=== PATIENT | male | born 1985 | race Caucasian/White ===

== ENCOUNTER 2016-08-21 14:22 | Observation (INO) | payer MEDICARE, MEDICAID, OTHER ==
[~2016-08-21] VITALS: Ht 170.2 cm; Wt 75.0 kg
[~2016-08-21 14:22] MED LIST: BP MEDICATION PO; CARBXR200 PO
[2016-08-21 14:40] VITALS: BP 127/81; PULSE 95; RESP 16; O2SAT 97
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
[2016-08-21 14:55] VITALS: BP 127/81; PULSE 92; RESP 16; O2SAT 96
[2016-08-21 15:33] LABS: ALT (GPT) 23 U/L (12-78); ANION GAP 9 MEQ/L (5-15); AST (GOT) 12 U/L (15-37); BICARBONATE 27.9 MEQ/L (21.0-32.0); BLOOD UREA NITROGEN 9 MG/DL (7-18); CHLORIDE 103 MEQ/L (98-107); GLOMERULAR FILTRATION RATE 94 ML/MIN (>89); POTASSIUM 4.2 MEQ/L (3.5-5.1); SODIUM (NA) 140 MEQ/L (136-145)
[2016-08-21 15:36] LABS: ALKALINE PHOSPHATASE 126 U/L (45-117); TOTAL BILIRUBIN ADULT 0.3 MG/DL (0.2-1.0)
[2016-08-21 16:47] LABS: AUTOMATED NEUTROPHIL # 4.8 TH/MM3 (1.8-7.7); BASOPHIL % 0.6 % (0.0-2.0); EOSINOPHIL # 0.2 TH/MM3 (0-0.4); EOSINOPHIL % 2.7 % (0.0-4.0); HEMO FLAGS DIFF FINAL; LYMPH % 18.3 % (9.0-44.0); LYMPHOCYTE # 1.2 TH/MM3 (1.0-4.8); MEAN CELL VOLUME 87.2 FL (80.0-100.0); MEAN CORPUSCULAR HEMOGLOBIN 29.6 PG (27.0-34.0); MEAN CORPUSCULAR HGB CONC 33.9 % (32.0-36.0); MONO % 7.2 % (0.0-8.0); NEUT % 71.2 % (16.0-70.0); PLATELET COUNT 235 TH/MM3 (150-450); RED BLOOD COUNT 5.05 MIL/MM3 (4.50-5.90); RED CELL DISTRIBUTION WIDTH 12.8 % (11.6-17.2); WHITE BLOOD COUNT 6.7 TH/MM3 (4.0-11.0)
[2016-08-21] MEDS ORDERED: BACT2OIN TOPICAL (17:03)
[2016-08-21] MEDS ORDERED: BACT800T5 PO (17:03)
[2016-08-21 17:50] VITALS: BP 126/84; PULSE 89; RESP 18; O2SAT 96
--- NOTE | 2016-08-21 23:39 | PD ---
Data Data Last Documented VS Vital Signs Date Time Temp Pulse Resp B/P Pulse Ox O2 Delivery O2 Flow Rate FiO2 08/21/16 17:50 89 18 126/84 96 Room Air Orders Complete Blood Count With Diff (08/21/16 14:47) Comprehensive Metabolic Panel (08/21/16 14:47) Psych Screen (08/21/16 14:47) Drug Screen, Random Urine (08/21/16 14:47) Alcohol (Ethanol) (08/21/16 14:47) Labs Laboratory Tests Test 08/21/16 15:00 White Blood Count 6.7 TH/MM3 Red Blood Count 5.05 MIL/MM3 Hemoglobin 14.9 GM/DL Hematocrit 44.0 % Mean Corpuscular Volume 87.2 FL Mean Corpuscular Hemoglobin 29.6 PG Mean Corpuscular Hemoglobin 33.9 % Concent Red Cell Distribution Width 12.8 % Platelet Count 235 TH/MM3 Mean Platelet Volume 9.4 FL Neutrophils (%) (Auto) 71.2 % Lymphocytes (%) (Auto) 18.3 % Monocytes (%) (Auto) 7.2 % Eosinophils (%) (Auto) 2.7 % Basophils (%) (Auto) 0.6 % Neutrophils # (Auto) 4.8 TH/MM3 Lymphocytes # (Auto) 1.2 TH/MM3 Monocytes # (Auto) 0.5 TH/MM3 Eosinophils # (Auto) 0.2 TH/MM3 Basophils # (Auto) 0.0 TH/MM3 CBC Comment DIFF FINAL Differential Comment Sodium Level 140 MEQ/L Potassium Level 4.2 MEQ/L Chloride Level 103 MEQ/L Carbon Dioxide Level 27.9 MEQ/L Anion Gap 9 MEQ/L Blood Urea Nitrogen 9 MG/DL Creatinine 0.93 MG/DL Estimat Glomerular Filtration 94 ML/MIN Rate Random Glucose 104 MG/DL Calcium Level 9.2 MG/DL Total Bilirubin 0.3 MG/DL Aspartate Amino Transf 12 U/L (AST/SGOT) Alanine Aminotransferase 23 U/L (ALT/SGPT) Alkaline Phosphatase 126 U/L Total Protein 7.7 GM/DL Albumin 4.6 GM/DL Ethyl Alcohol Level LESS THAN 3 MG/DL [facility] Supervised Visit with NATALIIA: Yes Narrative Course Patient seen and examined by me, was approached by Earnestine mckinney for psychiatry for possible left Hayward act. Patient is 31-year-old male with a history of dense autism is here because his father was involuntarily committed and now he has no one to care for him. Patient was Hayward acted because he is gravely disabled and cannot care for himself. No my exam speaks only into words, he is calm and collected and has not shown any aggressive behavior. We have approached case management and ultimately patient will need placement into a care facility or foster family. I'm willing to lift his Hayward act if we can find placement but because the patient has no family that can consent for him he will become a DCF consult. Earnestine is going to call [facility]. [facility] has not yet made recommendations. We'll keep him on Hayward act until a more appropriate disposition can be found. The patient does remain gravely disabled given his mental status he needs someone to look after him 24-hour stay 7 days per week. Diagnosis Primary Impression: Autism disorder Additional Impression: Impetigo Additional Instruction: Take medications as prescribed. Apply ointment as prescribed. Follow-up with your Primary Care Physician. Return to the ED for any acute worsening of symptoms. Scripts Mupirocin Topical (Bactroban Topical)2% Oint1 Appl TOPICAL BID 10 Days Ref 0 Prov:Jerome Salazar MD 08/21/16 Sulfamethoxazole-Trimethoprim (Bactrim DS)800-160 Mg Tab1 Tab PO BID 10 Days Ref 0 Prov:Jeroem Salazar MD 08/21/16 Mesfin Chaudhary MD Aug 21, 2016 23:39
[2016-08-22 04:00] VITALS: BP 133/90; PULSE 72; RESP 16; O2SAT 100
[2016-08-22 08:38] VITALS: BP 116/81; PULSE 80; RESP 16; O2SAT 100
[2016-08-22 12:40] VITALS: BP 131/79; PULSE 82; RESP 16; O2SAT 97
--- NOTE | 2016-08-22 14:53 | PD ---
Data Data Last Documented VS Vital Signs Date Time Temp Pulse Resp B/P Pulse Ox O2 Delivery O2 Flow Rate FiO2 08/22/16 12:40 82 16 131/79 97 Room Air Orders Complete Blood Count With Diff (08/21/16 14:47) Comprehensive Metabolic Panel (08/21/16 14:47) Psych Screen (08/21/16 14:47) Drug Screen, Random Urine (08/21/16 14:47) Alcohol (Ethanol) (08/21/16 14:47) Diet Regular Basic (08/22/16 Breakfast) Diet Regular Basic (08/22/16 Lunch) Labs Laboratory Tests Test 08/21/16 15:00 White Blood Count 6.7 TH/MM3 Red Blood Count 5.05 MIL/MM3 Hemoglobin 14.9 GM/DL Hematocrit 44.0 % Mean Corpuscular Volume 87.2 FL Mean Corpuscular Hemoglobin 29.6 PG Mean Corpuscular Hemoglobin 33.9 % Concent Red Cell Distribution Width 12.8 % Platelet Count 235 TH/MM3 Mean Platelet Volume 9.4 FL Neutrophils (%) (Auto) 71.2 % Lymphocytes (%) (Auto) 18.3 % Monocytes (%) (Auto) 7.2 % Eosinophils (%) (Auto) 2.7 % Basophils (%) (Auto) 0.6 % Neutrophils # (Auto) 4.8 TH/MM3 Lymphocytes # (Auto) 1.2 TH/MM3 Monocytes # (Auto) 0.5 TH/MM3 Eosinophils # (Auto) 0.2 TH/MM3 Basophils # (Auto) 0.0 TH/MM3 CBC Comment DIFF FINAL Differential Comment Sodium Level 140 MEQ/L Potassium Level 4.2 MEQ/L Chloride Level 103 MEQ/L Carbon Dioxide Level 27.9 MEQ/L Anion Gap 9 MEQ/L Blood Urea Nitrogen 9 MG/DL Creatinine 0.93 MG/DL Estimat Glomerular Filtration 94 ML/MIN Rate Random Glucose 104 MG/DL Calcium Level 9.2 MG/DL Total Bilirubin 0.3 MG/DL Aspartate Amino Transf 12 U/L (AST/SGOT) Alanine Aminotransferase 23 U/L (ALT/SGPT) Alkaline Phosphatase 126 U/L Total Protein 7.7 GM/DL Albumin 4.6 GM/DL Ethyl Alcohol Level LESS THAN 3 MG/DL MDM Supervised Visit with NATALIIA: No Narrative Course Patient signed out to me awaiting DCF placement. Inserted 31-year-old male with history of autism here as a Hayward act as he is unable to care for himself, father is unable to care for him as patient's father was involuntarily committed and there is now no person able to take care of patient. Patient is gravely disabled, near nonverbal. Patient has been cooperative throughout ED stay without any aggressive behavior. DCF has been contacted for placement versus foster family as he needs 24 7 care. DCF culled fruit packer came to the ED today, but do not anticipate being able to place patient. Patient has are to be in the emergency department for 24 hours at this time and will therefore be admitted for ultimate DCF placement. Diagnosis Primary Impression: Autism disorder Additional Impression: Impetigo Admitting Information Admitting Physician Requests: Observation Additional Instruction: Take medications as prescribed. Apply ointment as prescribed. Follow-up with your Primary Care Physician. Return to the ED for any acute worsening of symptoms. Scripts Mupirocin Topical (Bactroban Topical)2% Oint1 Appl TOPICAL BID 10 Days Ref 0 Prov:Jerome Salazar MD 08/21/16 Sulfamethoxazole-Trimethoprim (Bactrim DS)800-160 Mg Tab1 Tab PO BID 10 Days Ref 0 Prov:Jerome Salazar MD 08/21/16 Asmita Mendoza MD Aug 22, 2016 14:53
[2016-08-22] MEDS ORDERED: SODIUM CHLORIDE 0.9% FLUSH 5 ML FLUSH FLUSH PRN (16:00)
[2016-08-22] MEDS ORDERED: NALOXONE HCL 0.4 MG/ML AMP IV PRN (16:00)
[2016-08-22] MEDS: HEPARIN SODIUM - SQ 10,000 UNITS/ML VIAL SQ SCH (16:06)
[2016-08-22 16:08] VITALS: BP 113/80; PULSE 80; RESP 15; O2SAT 100
[2016-08-22 17:37] VITALS: BP 115/79; PULSE 78; RESP 18; TEMP 97.8; O2SAT 100
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
[2016-08-22] MEDS ORDERED: ONDANSETRON HCL 4 MG/2 ML VIAL IV PUSH PRN (18:45)
[2016-08-22] MEDS ORDERED: ACETAMINOPHEN 650 MG/20.3 ML UDC PO PRN (18:45)
[2016-08-22 20:15] VITALS: BP 112/69; PULSE 88; RESP 16; TEMP 97.6; O2SAT 98
[2016-08-22] MEDS: MUPIROCIN 2% OINT 22 GM TUBE TOPICAL SCH (21:18)
[2016-08-22] MEDS: SODIUM CHLORIDE 0.9% FLUSH 5 ML FLUSH FLUSH SCH (21:18)
[2016-08-22] MEDS: SULFAMETHOXAZOLE-TRIMETHOPRIM DS 800-160 MG TAB PO SCH (21:18)
[2016-08-23 00:30] VITALS: BP 104/68; PULSE 76; RESP 16; TEMP 98.4; O2SAT 98
[2016-08-23] MEDS: HEPARIN SODIUM - SQ 10,000 UNITS/ML VIAL SQ SCH ×2 (04:27→16:00)
[2016-08-23 04:40] VITALS: BP 100/70; PULSE 94; RESP 18; TEMP 97.2; O2SAT 98
--- NOTE | 2016-08-23 08:32 | HHI.PR ---
Subjective Subjective Remarks awakes to voice no reported changes overnight calm no seizures no fever Review of Systems Constitutional Constitutional Remarks 12 point ROS unable to do Vitals/Results Intake & Output 08/22/16 08/22/16 08/23/16 15:00 23:00 07:00 Intake Total 480 ml 240 ml Balance 480 ml 240 ml Intake Oral 480 ml 240 ml Vital Signs Vital Signs Date Time Temp Pulse Resp B/P Pulse Ox O2 Delivery O2 Flow Rate FiO2 08/23/16 04:40 97.2 94 18 100/70 98 08/23/16 00:30 98.4 76 16 104/68 98 08/22/16 20:15 97.6 88 16 112/69 98 08/22/16 17:37 97.8 78 18 115/79 100 08/22/16 16:08 80 15 113/80 100 Room Air 08/22/16 12:40 82 16 131/79 97 Room Air 08/22/16 08:38 80 16 116/81 100 Room Air CBC/BMP: 08/21/16 1500 08/21/16 1500 Physical Exam General General Appearance: Well Developed, No Acute Distress Eyes Eye Exam: Pupils Equal, Pupils Reactive Ears & Nose Ears & Nose Exam: Nasal Mucosa [place] Throat Throat Exam: Oral Mucosa [place] & Moist Neck Neck Exam: Neck Supple, Trachea Midline Pulmonary Resp Exam: Clear Bilaterally Cardiology CV Exam: Regular, Good Perfusion Gastrointestinal/Abdomen GI Exam: Soft, Non-Tender, Bowel Sounds Present, Non-Distended Musculoskeletal MS Exam: Joints Intact Integumentary Skin Exam: Warm, Lesion(s) Skin Remarks lesions to bridge of nose Extremeties Extremities Exam: No Edema, Pedal Pulses Palpable Neurologic Neuro Exam: Alert, Awake, Moving All Extremities VTE Prophylaxis VTE Prophylaxis Device: SCDs Assessment/Plan Problem List: (1) Autism disorder (2) Impetigo Assessment/Plan 31-year-old male who was brought in under [employer], pt unable to care for himself. History of severe autism. Unfortunately father was brought in under [employer] for psychosis. Request for admission for inability to care for himself and placement. Was also noted with rash, possibly impetigo -DCF has been contacted, case management consultation to assist with placement -Continue with antibiotic ointment -Continue with Bactrim 10 days Reported history of seizures, patient not on any medication -Monitor for seizure SCDs, Heparin for DVT prophylaxis Continue with regular diet Discharge when arrangements made, waiting for DCF's input D/W RN D/W Dr. Petersen D/W CM This patient was seen by myself and Dr. Petersen, this note is written on his behalf Lata Lund Aug 23, 2016 08:32
[2016-08-23] MEDS: SODIUM CHLORIDE 0.9% FLUSH 5 ML FLUSH FLUSH SCH ×4 (09:00→21:50)
[2016-08-23 09:04] VITALS: BP 115/65; PULSE 77; RESP 19; O2SAT 97
[2016-08-23] MEDS: SULFAMETHOXAZOLE-TRIMETHOPRIM DS 800-160 MG TAB PO SCH ×2 (09:46→21:49)
[2016-08-23] MEDS: MUPIROCIN 2% OINT 22 GM TUBE TOPICAL SCH ×2 (09:46→21:49)
[2016-08-23 14:30] VITALS: BP 120/65; PULSE 73; RESP 18; TEMP 98.3; O2SAT 100
[2016-08-23 17:24] VITALS: BP 116/64; PULSE 100; RESP 18; TEMP 97.3; O2SAT 99
[2016-08-23 19:55] VITALS: BP 123/63; PULSE 104; RESP 18; TEMP 98.4; O2SAT 97
[2016-08-24] VITALS (7 sets, daily range): BP systolic 110–128; BP diastolic 62–90; PULSE 74–95; RESP 14–21; TEMP 97.7–98.8; O2SAT 97–100
[2016-08-24] MEDS: HEPARIN SODIUM - SQ 10,000 UNITS/ML VIAL SQ SCH ×2 (03:53→16:00)
--- NOTE | 2016-08-24 08:41 | HHI.DCPOC ---
Discharge Care Plan Diagnosis: (1) Impetigo (2) Autism disorder Your Health Problems Are: Anxiety Difficulty with ADL Skin Breakdown Goals to Promote Your Health * To prevent worsening of your condition and complications * To maintain your health at the optimal level Directions to Meet Your Goals Take your medications as prescribed Follow your dietary instruction Follow activity as directed Keep your appointments as scheduled Take your immunizations and boosters as scheduled If your symptoms worsen call your PCP, if no PCP go to Urgent Care Center or Emergency Room Smoking is Dangerous to Your Health. Avoid second hand smoke Call the 24-hour hour crisis hotline for domestic abuse at [place]ata [place]. [facility] [place] Aug 24, 2016 08:41
--- NOTE | 2016-08-24 08:43 | HHI.PR ---
Subjective Subjective Remarks awakes to voice no reported changes overnight calm no seizures no fever rash improving Review of Systems Constitutional Constitutional Remarks 12 point ROS unable to do Vitals/Results Vital Signs Vital Signs Date Time Temp Pulse Resp B/P Pulse Ox O2 Delivery O2 Flow Rate FiO2 08/24/16 08:03 98.2 88 14 119/72 97 08/24/16 04:38 97.7 74 21 110/62 97 08/24/16 00:23 98.8 95 18 114/72 97 08/23/16 19:55 98.4 104 18 123/63 97 08/23/16 17:24 97.3 100 18 116/64 99 08/23/16 14:30 98.3 73 18 120/65 100 08/23/16 09:04 77 19 115/65 97 CBC/BMP: 08/21/16 1500 08/21/16 1500 Physical Exam General General Appearance: Well Developed, No Acute Distress Eyes Eye Exam: Pupils Equal, Pupils Reactive Ears & Nose Ears & Nose Exam: Nasal Mucosa [place] Throat Throat Exam: Oral Mucosa [place] & Moist Neck Neck Exam: Neck Supple, Trachea Midline Pulmonary Resp Exam: Clear Bilaterally Cardiology CV Exam: Regular, Good Perfusion Gastrointestinal/Abdomen GI Exam: Soft, Non-Tender, Bowel Sounds Present, Non-Distended Musculoskeletal MS Exam: Joints Intact Integumentary Skin Exam: Warm, Lesion(s) Skin Remarks lesions to bridge of nose -improving Extremeties Extremities Exam: No Edema, Pedal Pulses Palpable Neurologic Neuro Exam: Alert, Awake, Moving All Extremities VTE Prophylaxis VTE Prophylaxis Device: SCDs Assessment/Plan Problem List: (1) Autism disorder (2) Impetigo Assessment/Plan 31-year-old male who was brought in under [employer], pt unable to care for himself. History of severe autism. Unfortunately father was brought in under [employer] for psychosis. Request for admission for inability to care for himself and placement. Was also noted with rash, possibly impetigo -[facility] has been contacted, case management consultation to assist with placement -Continue with antibiotic ointment -Continue with Bactrim 10 days -rash improving Reported history of seizures, patient not on any medication -Monitor for seizure SCDs, Heparin for DVT prophylaxis Continue with regular diet Discharge today if arrangements made. Apparently family has contacted JENNY and DCF however, no contact with CM will have CM coordinate for discharge today D/W RN D/W Dr. Petersen D/W CM This patient was seen by myself and Dr. Petersen, this note is written on his behalf Lata Lund Aug 24, 2016 08:43
[2016-08-24] MEDS: MUPIROCIN 2% OINT 22 GM TUBE TOPICAL SCH ×2 (09:06→21:00)
[2016-08-24] MEDS: SULFAMETHOXAZOLE-TRIMETHOPRIM DS 800-160 MG TAB PO SCH ×2 (09:06→21:00)
[2016-08-24] MEDS: SODIUM CHLORIDE 0.9% FLUSH 5 ML FLUSH FLUSH SCH (21:00)
[2016-08-25] MEDS: HEPARIN SODIUM - SQ 10,000 UNITS/ML VIAL SQ SCH ×2 (03:24→16:00)
[2016-08-25 03:33] VITALS: BP 117/64; PULSE 90; TEMP 98.2; O2SAT 97
[2016-08-25 07:24] VITALS: BP 104/70; PULSE 76; RESP 18; TEMP 97.9; O2SAT 95
[2016-08-25] MEDS: MUPIROCIN 2% OINT 22 GM TUBE TOPICAL SCH ×2 (09:00→21:00)
[2016-08-25] MEDS: SODIUM CHLORIDE 0.9% FLUSH 5 ML FLUSH FLUSH SCH ×2 (09:00→21:00)
[2016-08-25] MEDS: SULFAMETHOXAZOLE-TRIMETHOPRIM DS 800-160 MG TAB PO SCH ×2 (09:00→21:00)
[2016-08-25 11:32] VITALS: BP 120/73; PULSE 100; RESP 16; TEMP 98.2; O2SAT 97
[2016-08-25 15:44] VITALS: BP 107/79; PULSE 98; RESP 18; TEMP 98.3; O2SAT 96
[2016-08-25 19:41] VITALS: BP 139/96; PULSE 103; RESP 20; O2SAT 100
[2016-08-25 23:15] VITALS: BP 121/78; PULSE 93; O2SAT 98
[2016-08-26] MEDS: HEPARIN SODIUM - SQ 10,000 UNITS/ML VIAL SQ SCH (03:22)
[2016-08-26 03:35] VITALS: BP 120/79; PULSE 97; RESP 18; TEMP 98.3; O2SAT 98
[2016-08-26 08:00] VITALS: BP 133/80; PULSE 94; RESP 18; TEMP 96.6; O2SAT 96
[2016-08-26] MEDS: SODIUM CHLORIDE 0.9% FLUSH 5 ML FLUSH FLUSH SCH (09:00)
[2016-08-26] MEDS: SULFAMETHOXAZOLE-TRIMETHOPRIM DS 800-160 MG TAB PO SCH (09:09)
[2016-08-26] MEDS: MUPIROCIN 2% OINT 22 GM TUBE TOPICAL SCH (09:09)
[2016-08-26 12:00] VITALS: BP 139/68; PULSE 82; RESP 18; TEMP 96.9; O2SAT 98
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
== END 2016-08-26 13:54 | disposition home or self-care (01) ==
LOC: NEPC 14:22 → NEDA 08-22 15:51 → NEPFCDU 08-22 17:26
PROVIDERS: ADMIT Specialist; ATTEND Specialist
DX: F84.0 Autistic disorder (principal); L01.00 Impetigo, unspecified; R21 Rash and other nonspecific skin eruption; I10 Essential (primary) hypertension
CPT/HCPCS: 80053; 85025; 99284; G0378; J1644; J2405; 80320

== ENCOUNTER 2017-07-31 21:12 | Emergency (ER) | payer MEDICARE, MEDICAID ==
[~2017-07-31 21:12] MED LIST changes: +BACT2OIN TOPICAL; -BP MEDICATION PO; -CARBXR200 PO
[2017-07-31 21:16] VITALS: BP 168/106; PULSE 102; RESP 16; TEMP 97.4; O2SAT 99
[2017-07-31] MEDS ORDERED: TEGR200T PO (22:08)
[2017-07-31] MEDS ORDERED: NORV2.5T PO (22:13)
[2017-07-31] MEDS ORDERED: SULFAMETHOXAZOLE-TRIMETHOPRIM DS 800-160 MG TAB PO ONE (22:15)
[2017-07-31] MEDS ORDERED: TETANUS/DIPHTHERIA TOXOID ADULT 0.5 ML VIAL IM ONE (22:15)
[2017-07-31] MEDS ORDERED: amLODIPine BESYLATE 5 MG TAB PO ONE (22:15)
[2017-07-31] MEDS ORDERED: BACT800T5 PO (22:17)
[2017-07-31] MEDS ORDERED: AMLO5TAB2 PO (22:17)
[2017-07-31] MEDS ORDERED: BACTROBAN OINT TOPICAL (22:17)
--- NOTE | 2017-07-31 22:17 | PD ---
HPI Chief Complaint: Medical Clearance Time Seen by Provider: 21:51 Travel History International Travel<30 days: No Contact w/Intl Traveler<30days: No Traveled to known affect area: No History of Present Illness HPI 32-year-old male complains infected lesion on the face and hands. Patient has been picking his sores on the face also irritate the rash on the hand. Patient was seen by [facility] in the past for the same problem. Patient also has history hypertension and recently lost the personal physician. Patient requesting refill prescription for amlodipine for hypertension. Patient denies any headache. Patient denies any chest pain or shortness of breath. Patient denies abdominal pain. Patient denies any fever chills. Patient is not up-to- date with TD booster. PFSH Past Medical History Cardiovascular Problems: Yes Diminished Hearing: No Hypertension: Yes Neurologic: Yes (AUTISTIC) Psychiatric: Yes (AUTISM) Integumentary: Yes (RECURRING SKIN INFECTIONS) Immunizations Current: Yes Seizures: Yes Social History Alcohol Use: No Tobacco Use: No Substance Use: No Allergies-Medications (Allergen,Severity, Reaction): Coded Allergies: No Known Allergies (Verified , 08/21/16) Reported Meds & Prescriptions Reported Meds & Active Scripts Active Bactroban Topical (Mupirocin) 2% Oint 1 Appl TOPICAL BID 10 Days Review of Systems General / Constitutional: No: Fever Eyes: No: Visual changes HENT: No: Headaches Cardiovascular: No: Chest Pain or Discomfort Respiratory: No: Shortness of Breath Gastrointestinal: No: Abdominal Pain Genitourinary: No: Dysuria Musculoskeletal: No: Pain Skin: Positive Rash Neurologic: No: Weakness Psychiatric: No: Depression Endocrine: No: Polydipsia Hematologic/Lymphatic: No: Easy Bruising Physical Exam Narrative GENERAL: Well-nourished, well-developed patient. SKIN: Focused skin assessment warm/dry. Patient had crusted lesions on the face. Patient has multiple small skin lesion on the fingers with mild redness associates with that. HEAD: Normocephalic. EYES: No scleral icterus. No injection or drainage. NECK: Supple, trachea midline. No JVD or lymphadenopathy. CARDIOVASCULAR: Regular rate and rhythm without murmurs, gallops, or rubs. RESPIRATORY: Breath sounds equal bilaterally. No accessory muscle use. GASTROINTESTINAL: Abdomen soft, non-tender, nondistended. MUSCULOSKELETAL: No cyanosis, or edema. BACK: Nontender without obvious deformity. No CVA tenderness. Data Data Last Documented VS Vital Signs Date Time Temp Pulse Resp B/P (MAP) Pulse Ox O2 Delivery O2 Flow Rate FiO2 07/31/17 21:16 97.4 102 16 168/106 (126) 99 Room Air Orders Orders Amlodipine (Norvasc) (07/31/17 22:15) Tetanus/Diphtheria Tox Adult (Tetanus/Di (07/31/17 22:15) Sulfamet-Trimeth Ds 800-160 Mg (Bactrim (07/31/17 22:15) MDM Medical Decision Making Medical Screen Exam Complete: Yes Emergency Medical Condition: Yes Differential Diagnosis Differential diagnosis including impetigo, cellulitis,, uncontrolled hypertension. Narrative Course 32-year-old male with crusted lesions on the face and fingers and elevated blood pressure. History of hypertension. Amlodipine 2.5 mg p.o. given. Bactrim DS 1 tablet p.o. given now. Td booster given. Diagnosis Primary Impression: Impetigo Additional Impression: Uncontrolled hypertension Patient Instructions: General Instructions Additional Instructions: Increase amlodipine to 5 mg daily. Check blood pressure daily. Follow-up with personal physician. Bactroban ointment and Bactrim DS as directed. Soap and water wash daily. Med/Other Pt SpecificInfo: Prescription(s) given, Existing Med Changed Scripts Sulfamethoxazole-Trimethoprim (Bactrim DS) 800-160 Mg Tab 1 TAB PO BID for Infection, #14 TAB 0 Refills Prov: Sudheer Macias MD 07/31/17 [Bactroban Oint] No Conflict Check 1 APPLIC TOPICAL DAILY, #1 Prov: Sudheer Macias MD 07/31/17 Amlodipine (Amlodipine) 5 Mg Tab 5 MG PO DAILY for Blood Pressure Management, #30 TAB 0 Refills Prov: Sudheer Macias MD 07/31/17 Sudheer Macias MD Jul 31, 2017 22:17
== END 2017-07-31 22:37 | disposition home or self-care (01) ==
LOC: NEPD 21:12
DX: L01.00 Impetigo, unspecified (principal); I10 Essential (primary) hypertension; F84.0 Autistic disorder; Z23 Encounter for immunization
CPT/HCPCS: 90471; 90714

== ENCOUNTER 2017-08-29 19:40 | Emergency (ER) | payer MEDICARE, MEDICAID ==
[~2017-08-29 19:40] MED LIST changes: +AMLO5TAB2 PO; -BACT2OIN TOPICAL; +BACT800T5 PO; +BACTROBAN OINT TOPICAL; +NORV2.5T PO; +TEGR200T PO
[2017-08-29 20:09] VITALS: BP 134/85; PULSE 92; RESP 18; TEMP 98.5; O2SAT 97
[2017-08-29] MEDS ORDERED: BACT800T5 PO (23:57)
[2017-08-29] MEDS ORDERED: TEGR200T PO (23:57)
[2017-08-29] MEDS ORDERED: AMLO5TAB2 PO (23:57)
--- NOTE | 2017-08-30 00:02 | PD ---
HPI Chief Complaint: Skin Problem Time Seen by Provider: 23:51 Travel History International Travel<30 days: No Contact w/Intl Traveler<30days: No Traveled to known affect area: No History of Present Illness HPI 32-year-old white male presents emergency department accompanied by his father for medication refill. Patient has a history of autism and impetigo. Father states that he tends to pick his skin. He develops secondary wound infections and has been on Bactrim in the past. He has requested a refill. He also goes on to state that he has lost his doctor and and does not have an appointment with a new doctor until later next month. He would like a refill of his blood pressure medicine and medicine for his autism. Patient's father states that he has been in his normal state of health. He has had no fever chills. No nausea vomiting. PFSH Past Medical History Cardiovascular Problems: Yes Diminished Hearing: No Hypertension: Yes Neurologic: Yes (AUTISTIC) Psychiatric: Yes (AUTISM) Integumentary: Yes (RECURRING SKIN INFECTIONS) Immunizations Current: Yes Seizures: Yes Past Surgical History Body Medical Devices: AUTISM Social History Alcohol Use: No Tobacco Use: No Substance Use: No Allergies-Medications (Allergen,Severity, Reaction): Coded Allergies: No Known Allergies (Verified , 08/21/16) Reported Meds & Prescriptions Reported Meds & Active Scripts Active Bactrim DS (Sulfamethoxazole-Trimethoprim) 800-160 Mg Tab 1 Tab PO BID Amlodipine (Amlodipine Besylate) 5 Mg Tab 5 Mg PO DAILY Tegretol (Carbamazepine) 200 Mg Tab 200 Mg PO BID Bactrim DS (Sulfamethoxazole-Trimethoprim) 800-160 Mg Tab 1 Tab PO BID [Bactroban Oint] 1 Applic TOPICAL DAILY Reported Norvasc (Amlodipine Besylate) 2.5 Mg Tab 2.5 Mg PO DAILY Review of Systems Except as stated in HPI: all other systems reviewed are Neg Physical Exam Narrative GENERAL: This is a well-nourished, well-developed patient, in no apparent distress. SKIN: Patient has scaly lesions to the left side the neck as well as his palms. , ecchymoses or lesions. Warm and dry. HEAD: Atraumatic. Normocephalic. EYES: PERRL, EOMI, no discharge or injection. No scleral icterus. EARS: Clear NOSE: Nasal turbinates appear normal. THROAT: Mucosa pink and moist. Airway patent. NECK: Trachea midline. supple, moves head freely. LUNGS: Clear to auscultation. CV: Regular in rhythm. ABDOMEN: Soft nontender. EXT: No clubbing cyanosis or edema. Data Data Last Documented VS Vital Signs Date Time Temp Pulse Resp B/P (MAP) Pulse Ox O2 Delivery O2 Flow Rate FiO2 08/29/17 20:09 98.5 92 18 134/85 (101) 97 MDM Medical Decision Making Medical Screen Exam Complete: Yes Emergency Medical Condition: Yes Medical Record Reviewed: Yes Differential Diagnosis MDM: High Differential diagnoses: Abscess, folliculitis, cellulitis, lymphangitis, abrasion, contact dermatitis, impetigo, hypertension Narrative Course I have agreed to refill the patient's medications. Diagnosis Primary Impression: Impetigo Additional Impressions: Autism Hypertension Patient Instructions: General Instructions Additional Instructions: Rest. Avoid picking. Medications as directed. Follow-up with your doctor as scheduled. Med/Other Pt SpecificInfo: Prescription(s) given Scripts Sulfamethoxazole-Trimethoprim (Bactrim DS) 800-160 Mg Tab 1 TAB PO BID for Infection, #20 TAB 0 Refills Prov: Ricky Morris MD 08/29/17 Amlodipine (Amlodipine) 5 Mg Tab 5 MG PO DAILY for Blood Pressure Management, #30 TAB 0 Refills Prov: Ricky Morris MD 08/29/17 Carbamazepine (Tegretol) 200 Mg Tab 200 MG PO BID, #60 TAB 0 Refills Prov: Ricky Morris MD 08/29/17 Disposition: 01 DISCHARGE HOME Condition: Stable Kade Lopez Aug 30, 2017 00:02
== END 2017-08-30 00:19 | disposition home or self-care (01) ==
LOC: NEPD 19:40
DX: L01.00 Impetigo, unspecified (principal); F84.0 Autistic disorder; I10 Essential (primary) hypertension
CPT/HCPCS: 99281